=== PATIENT | male | born 1945 ===

== ENCOUNTER 2018-03-19 06:51 | Day surgery (SDC) | payer OTHER ==
[2018-03-16 16:12] VITALS: BMI 22.4
[2018-03-19] MEDS ORDERED: Lactated Ringer's 1,000 ML IV ONE (09:45)
--- NOTE | 2018-03-19 09:45 | CP.SDSHP ---
Same Day Surgery H & P - History Proposed Procedure: High risk screening colonoscopy Pre-Op Diagnosis: Personal history of colon polyps, high risk screening colonoscopy - Previous Medical/Surgical History Misc: Other Comments: Hyperlipidemia, BPH Previous Surgical History: None - Allergies Allergies: Allergies No Known Allergies Allergy (Verified 03/16/18 16:11) - Current Medications Current Medications: see reconciliation sheet - Physical Exam General Appearance: WD WN male in NAD Vital Signs: Vital Signs 03/19/18 07:10 Temperature 97.8 F Pulse Rate 73 Respiratory 19 Rate Blood Pressure 136/73 O2 Sat by Pulse 100 Oximetry Mental Status: Alert & Oriented x3 Neuro: WNL Heart: WNL Lungs: WNL GI: WNL - {Optional Preform as Required} Abdomen: WNL - Impression Impression: Personal history of colon polyps, high risk screening colonoscopy Pt. Evaluated Today:Candidate for Anesthesia & Procedure: Yes - Date & Time Date: 03/19/18 Time: 09:45 Short Stay Discharge - Short Stay Discharge Admitting Diagnosis/Reason for Visit: P/H COLON POLYPS Disposition: HOME/ ROUTINE
[2018-03-19] MEDS ORDERED: Midazolam 2 MG/2 ML VIAL ONE (09:48)
[2018-03-19] MEDS ORDERED: Propofol 10 mg/ml Inj (20 ML) ONE (09:49)
[2018-03-19] MEDS ORDERED: Lidocaine Hydrochloride 5 ML INJ ONE (09:49)
[2018-03-19 10:38] VITALS: TEMP 97.3
[2018-03-19 11:12] VITALS: O2SAT 99
[2018-03-19 12:49] VITALS: BP 123/69; PULSE 68; RESP 13
== END 2018-03-19 11:41 | disposition home or self-care (01) ==
LOC: C.ENDO 06:51
PROVIDERS: ATTEND Internal Medicine Gastroenterology
DX: D12.2 Benign neoplasm of ascending colon (principal); K57.90 Diverticulosis of intestine, part unspecified, without perforation or abscess without bleeding; K64.8 Other hemorrhoids
CPT/HCPCS: 45388; 88305; J2250; J2704; J7120

== ENCOUNTER 2018-12-04 10:24 | Outpatient (CLI) | payer OTHER, MEDICARE | END 2018-12-04 10:25 | disposition home or self-care (01) | LOC: C.CTH 10:24 ==

== ENCOUNTER 2019-01-09 11:13 | Outpatient (CLI) | payer OTHER, MEDICARE | END 2019-01-09 11:14 | disposition home or self-care (01) | LOC: C.LAB 11:13 | DX: D33.3 Benign neoplasm of cranial nerves (principal) ==

== ENCOUNTER 2019-01-21 11:57 | Outpatient (CLI) | payer OTHER, MEDICARE | END 2019-01-21 11:58 | disposition home or self-care (01) | LOC: C.MRIC 11:58 | DX: D33.3 Benign neoplasm of cranial nerves (principal) ==